=== PATIENT | male | born 1970 | race Two or more races ===

== ENCOUNTER 2022-01-04 10:19 | Day surgery (SDC) | payer OTHER ==
[2022-01-02 13:03] LABS: Urine WBC None Seen /hpf (0 - 3)
[2022-01-02 13:07] LABS: Basophils # (auto) 0.1 10 ^3/uL (0-0.2); Monocytes # (auto) 0.5 10 ^3/uL (0-1.3); Neutrophils # (auto) 4.3 10 ^3/uL (1.6-8.6)
[2022-01-02 13:08] LABS: Basophils % (auto) 1.2 % (0.0-2.0); Eosinophils # (auto) 0.2 10 ^3/uL (0-0.8); Eosinophils % (auto) 2.4 % (0.0-7.0); Hematocrit 54.9 % (41.0-53.0); Hemoglobin 18.6 g/dL (13.5-17.5); Lymphocytes # (auto) 2.7 10 ^3/uL (0.4-5.4); Lymphocytes % (auto) 34.5 % (10.0-50.0); Mean Corpuscular Hemoglobin 30.7 pg (28.0-32.0); Mean Corpuscular Hgb Conc. 33.8 g/dL (32.0-36.0); Mean Corpuscular Volume 90.8 fL (80.0-100.0); Monocytes % (auto) 6.7 % (0.0-12.0); Neutrophils % (auto) 55.2 % (37.0-80.0); Red Blood Cells 6.05 10^6/uL (4.5-5.90); Red Cell Distribution Width 13.5 % (11.8-14.3); White Blood Cell 7.7 10^3/uL (4.4-10.8)
[2022-01-02 13:22] LABS: INR 1.03 (0.9-1.15)
[2022-01-02 13:43] LABS: Urine Bacteria NONE SEEN /hpf (None Seen); Urine Blood Negative /uL (Negative); Urine Specific Gravity 1.009 (1.001-1.035)
[2022-01-02 13:45] LABS: Albumin 4.4 g/dL (3.4-5.0); Potassium 4.4 mmol/L (3.5-5.1)
[2022-01-02 13:51] LABS: BUN/Creatinine Ratio 14.3; Bilirubin, Total 0.9 mg/dL (0.2-1.0); Total Protein 7.3 g/dL (6.4-8.2)
[~2022-01-04] VITALS: Ht 177.8 cm; Wt 86.2 kg
[~2022-01-04 10:19] MED LIST: HYDR-4072 PO; LEVOTAB51 PO
[2022-01-04] MEDS ORDERED: ceFAZolin 1GM/50ML 100 ML IV ONE (10:23)
[2022-01-04] MEDS ORDERED: fentaNYL CITRATE 100 MCG/2 ML VL ONE (10:36)
[2022-01-04] MEDS ORDERED: ROCURONIUM 10MG/ML 10ML VIAL IV ONE (10:36)
[2022-01-04] MEDS ORDERED: MIDAZOLAM HCL 2MG/2ML 2ml VIAL (1mg/ml) ONE (10:36)
[2022-01-04] MEDS ORDERED: HYDROmorphone HCL 2 MG/ML VL/or syr ONE (10:36)
[2022-01-04] MEDS ORDERED: DexAMETHasone SOD PHOS 10MG/1ML VIAL INJ ONE (10:37)
[2022-01-04] MEDS ORDERED: KETOROLAC TROMETH 60MG/2ML VIAL ONE (10:37)
[2022-01-04] MEDS ORDERED: SODIUM CHLORIDE LOCK 20 ML ONE (10:37)
[2022-01-04] MEDS ORDERED: ONDANSETRON HCL 4 MG/2 ML VIAL ONE (10:37)
[2022-01-04] MEDS ORDERED: GLYCOPYRROLATE 0.2 MG/ML 1ML VIAL ONE (10:37)
[2022-01-04] MEDS ORDERED: NEOSTIGMINE 1 MG/ML INJ (10mg/10ML VIAL) ONE (10:37)
[2022-01-04] MEDS ORDERED: MORPHINE SULFATE 4 MG/ML SYR/VIAL IV PRN (10:45)
[2022-01-04] MEDS ORDERED: HYDROmorphone HCL 2 MG/ML VL/or syr IV PRN ×2 (10:45)
[2022-01-04] MEDS ORDERED: METOCLOPRAMIDE HCL 5MG/ml INJ 2ml VIAL IV PRN (10:45)
[2022-01-04] MEDS ORDERED: BUPIVACAINE W/ EPINEPH 0.25% INJ 50ML MDV IJ ONE (11:13)
[2022-01-04] MEDS ORDERED: SUGAMMADEX 200mg/2ml Vial (100MG/ML) IV ONE (11:25)
[2022-01-04] MEDS ORDERED: LIDOCAINE 2% (LOCAL ANESTH.) PF 5ml SDV ONE (11:33)
[2022-01-04 12:30] VITALS: BP 140/83
== END 2022-01-04 13:05 | disposition home or self-care (01) ==
LOC: SUR 10:19
PROVIDERS: ATTEND Surgery
DX: K42.0 Umbilical hernia with obstruction, without gangrene (principal); Z90.49 Acquired absence of other specified parts of digestive tract; Z98.890 Other specified postprocedural states; Z87.891 Personal history of nicotine dependence; Z20.822 Contact with and (suspected) exposure to COVID-19
CPT/HCPCS: 36415; 49587; 80053; 81001; 85025; 85610; 85730; 86850; 86900; 86901; C1781; J0690; J1100; J1170; J1885; J2001; J2250; J2405; J3010; U0003